=== PATIENT | female | born 1960 | race Caucasian/White ===

== ENCOUNTER 2019-07-30 02:35 | Outpatient (CLI) | payer OTHER | END 2019-07-30 02:36 | disposition critical access hospital (66) | LOC: EMS 02:35 | PROVIDERS: ATTEND Surgery | DX: M54.5 Low back pain (principal); M25.551 Pain in right hip; M25.552 Pain in left hip | CPT/HCPCS: A0425; A0429 ==

== ENCOUNTER 2019-07-30 02:47 | Emergency (ER) | payer OTHER ==
[2019-07-30] MEDS ORDERED: ONDANSETRON ODT 4 MG TABLET TL STA (03:07)
[2019-07-30] MEDS ORDERED: DEXAMETHASONE 10 MG/ML VIAL PO STA (03:07)
[2019-07-30] MEDS ORDERED: HYDROmorphone 1 MG/ML CARPUJECT IM STA (03:07)
[2019-07-30] MEDS ORDERED: CHERRY SYRUP 10 ML UDC PO ONE (03:07)
--- NOTE | 2019-07-30 03:27 | ED Physician Documentation ---
PD HPI BACK PAIN - Stated complaint Stated Complaint: TINGLING/NUMBNESS LOWER BACK - Chief complaint Chief Complaint: Back Pain - History obtained from History obtained from: Patient - History of Present Illness Timing - onset: Yesterday Timing - duration: Days (2) Timing - details: Gradual onset, Still present Location: Lower, Right Quality: Pain, Spasm, Sharp, Similar to prior episodes Associated symptoms: No: Fever, Weakness, Numbness, Incontinent of urine, Unable to urinate, Hematuria, Incontinent of stool Improves with: Rest, Position, Meds Worsened by: Movement Contributing factors: Other (travel by auto from [place]) Similar symptoms before: Diagnosis (sciatica) Recently seen: Clinic - Additional information Additional information: 59-year-old female with a history of Crohn's disease and sciatica drove here yesterday from [place] when she developed some pain in her right lower back radiating down the right leg and she has been unable to get control of this pain with any of the usual modalities that she uses for her sciatica when it happens. Review of Systems Constitutional: denies: Fever Ears: denies: Ear pain Nose: denies: Congestion Throat: denies: Sore throat Respiratory: denies: Dyspnea, Cough GI: denies: Vomiting Musculoskeletal: reports: Back pain, Extremity pain Neurologic: denies: Generalized weakness, Focal weakness, Numbness PD PAST MEDICAL HISTORY - Past Medical History Past Medical History: Yes Cardiovascular: Hypertension Respiratory: Sleep apnea Neuro: Other GI: Crohn's disease Psych: Anxiety Musculoskeletal: Chronic back pain Other Past Medical History: Arthritis; Sciatica to bilat hips - Past Surgical History Past Surgical History: Yes General: Cholecystectomy, Appendectomy, Bowel surgery Ortho: Carpal Tunnel surgery, Other /AUDIOMETRIST: section, Hysterectomy - Present Medications Home Medications: Ambulatory Orders Medication Instructions Recorded Confirmed Cyclobenzaprine [Flexeril] 10 mg PO TID PRN #20 tablet 07/30/19 Oxycodone HCl/Acetaminophen 1 - 2 each PO Q6H PRN #14 tablet 07/30/19 [Percocet 5-325 mg Tablet] - Allergies Allergies/Adverse Reactions: Allergies Allergy/AdvReac Type Severity Reaction Status Date / Time Sulfa (Sulfonamide Allergy Hives Verified 07/30/19 02:54 Antibiotics) - Social History Does the pt smoke?: No Smoking Status: Never smoker Does the pt drink ETOH?: No Does the pt have substance abuse?: No - Immunizations Immunizations are current?: Yes - POLST Patient has POLST: No PD ED PE NORMAL - Vitals Vital signs reviewed: Yes (hypertensive ) - General General: Alert and oriented X 3, Well developed/nourished, Other (appears to be in 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 ) - HEENT HEENT: Atraumatic, PERRL, EOMI - Respiratory Respiratory: No respiratory distress - Back Back: No CVA TTP, No spinal TTP, Other (There is lower lumbar spine paraspinous muscle tenderness on the right leading into the sciatic notch. 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, No motor deficit, No sensory deficit, Normal speech Eye Opening: Spontaneous Motor: Obeys Commands Verbal: Oriented GCS Score: 15 - Psych Psych: Normal mood, Normal affect Results - Vitals Vitals: Vital Signs - 24 hr 07/30/19 07/30/19 02:49 04:56 Temperature 37.9 C H Heart Rate 84 85 Respiratory 20 18 Rate Blood Pressure 148/92 H 145/80 H O2 Saturation 97 94 Oxygen O2 Source Room air PD MEDICAL DECISION MAKING - ED course Complexity details: considered differential, d/w patient ED course: 59-year-old female with a history of sciatica has pain radiating down her right leg and she is administered dexamethasone 10 mg orally and 1 mg of IM Dilaudid and 4 mg of TL Zofran. She requires further rescue with toradal. We will send her home with some Percocet and Flexeril. Departure - Departure Disposition: Home, Self Care Clinical Impression: Sciatica Qualifiers: Laterality: right Qualified Code(s): M54.31 - Sciatica, right side Condition: Stable Instructions: ED Sciatica Follow-Up: Your, doctor [Other] Prescriptions: Cyclobenzaprine [Flexeril] 10 mg PO TID PRN #20 tablet PRN Reason: Spasms Oxycodone HCl/Acetaminophen [Percocet 5-325 mg Tablet] 1 - 2 each PO Q6H PRN #14 tablet PRN Reason: pain Discharge Date/Time: 07/30/19 04:56
[2019-07-30] MEDS ORDERED: oxyCODONE/ACET 5/325 Prepack 4 PO STA (03:35)
[2019-07-30] MEDS ORDERED: CYCLOBENZAPRINE 10 MG Prepack 2 PO PRN (03:35)
[2019-07-30] MEDS ORDERED: KETOROLAC 60 MG/2 ML VIAL IM STA (04:05)
[2019-07-30 04:57] VITALS: BP 145/80
== END 2019-07-30 04:56 | disposition home or self-care (01) ==
LOC: ED 02:47
DX: M54.41 Lumbago with sciatica, right side (principal); I10 Essential (primary) hypertension; Z87.19 Personal history of other diseases of the digestive system
CPT/HCPCS: 96372; 99283; 99284; A9270; J1170; Q0162